=== PATIENT | female | born 1995 | race Caucasian/White ===

== ENCOUNTER → 2017-09-17 | Outpatient (CLI) | payer OTHER ==
--- NOTE | 2017-09-17 10:30 | DIREP ---
PROCEDURE:US BREAST-LT COMPARISON:None. INDICATIONS:N63 LUMP IN BREAST FINDINGS: BREAST ULTRASOUND: Left Breast:Sonographic examination of the entire breast including all 4 quadrants, retroareolar region and axilla was performed. Static images from the evaluation are submitted. There are limitations in the retroareolar region secondary to nipple artifact. There are no suspicious masses, microcalcifications or architectural distortions visible to suggest malignancy. The axilla is negative. CONCLUSION:No focal abnormality. The area of concern at 9 o'clock, 8 cm from nipple corresponds to normal appearing tissue. There is no radiographic evidence of malignancy. RECOMMENDATIONS:Follow-up with referring healthcare provider. A negative study does not exclude a significant abnormality. The reported area of clinical concern should be evaluated in its clinical context to determine if additional evaluation is warranted. Final management should be based on findings at clinical breast examination and clinical suspicion. Additional imaging evaluation may be warranted. Given the history of a palpable abnormality, surgical consult should be considered. OVERALL FINAL ASSESSMENT:BI-RADS 1 - Negative Comment: The need for additional evaluation (i.e., short-term imaging follow-up, surgical consult, breast MRI, etc.) beyond what was done today, should be based on clinical suspicion and clinical findings. Given the combination of a negative mammogram and negative ultrasound, the likelihood of malignancy has been shown to range from 0.1% to 4%.1-6 1. Anam SM, Rita LIG, Brandon DN, Lamine SC, Divya CM, Jared JE. Sonographic evaluation of clinically palpable breast cancers invisible on mammography. Breast J 2000; 6(4):247-251. 2. Low MA, Krishan SH, Brian AJ, Harlan AT, Chani TI, Sawyer SB. Breast biopsy avoidance: the value of normal mammograms and normal sonograms in the setting of a palpable lump. Radiology 2001; 219(1):186-191. 3. Breast biopsy avoidance. [Letters to the editor book and replies] Radiology 2002; 222(3):857-859. 4. Breast biopsy avoidance. [Letters to the editor book and replies] Radiology 2002; 222(2):581-582. 5. Ilia L, Ricki PJ, Balta R, et al. Specificity of mammography and US in the evaluation of a palpable abnormality: retrospective review. Radiology 2002; 225(1):176-181. 6. Desiree N, Rojelio L, Markus SALAZAR, Jett M, Josemanuel S, Noanup J. [place] breast imaging accuracy study: comparative sensitivity and specificity of mammography and sonography in young women with symptoms. AJR 2003; 180(4):935-940. Dictated by: Skip Negron M.D. on 09/17/2017 at 10:16 AM
== END | disposition home or self-care (01) ==
LOC: RAD 03:45
PROVIDERS: ATTEND Nurse Practitioner Family
DX: N63.10 Unspecified lump in the right breast, unspecified quadrant (principal)
CPT/HCPCS: 76641

== ENCOUNTER → 2017-10-02 | Outpatient (CLI) | payer OTHER ==
--- NOTE | 2017-10-02 11:44 | DIREP ---
PROCEDURE:MAMMO BILATERAL DIAGNOSTIC COMPARISON:[facility], US, US BREAST COMPLETE-LT, 09/17/2017, 09:55 AM. INDICATIONS:N63 LEFT BREAST NODULE BREAST COMPOSITION:The breasts are heterogeneously dense, which may obscure small masses. DIAGNOSTIC DIGITAL MAMMOGRAM: Right views [DIGITAL]: MLO and CC Left views [DIGITAL]: MLO, CC, mediolateral, and laterally exaggerated CC Computer Assisted Detection (CAD) was utilized. A skin marker was placed over the 4 o'clock posterior depth position of the left breast, to indicate the area where the patient intermittently feels a palpable nodule. A 2nd skin marker was placed over the 8 o'clock posterior depth position of the left breast, to indicate the area where her caregiver pelvic possible palpable nodule on physical examination. There is no mass, suspicious microcalcification, or architecture distortion in the areas of clinical concern or elsewhere in either breast. The areas marked by skin markers are very well visualized with no significant overlying obscuring fibroglandular tissue. IMPRESSION:No mammographic evidence of malignancy. Review of the previous ultrasound of the left breast, 09/17/2017, also showed that there were no suspicious ultrasound findings. (Please see that separate ultrasound report.) RECOMMENDATIONS: 1. Clinical follow-up by healthcare provider for breast signs and symptoms. If there remains strong clinical concern for possible underlying breast mass despite the present negative ultrasound and mammographic findings, such a suspected clinical mass should be managed clinically. 2. Findings and recommendations were discussed with the patient. OVERALL FINAL ASSESSMENT:BI-RADS 1 - Negative Mammogram Dictated by: Tavo Mark M.D. on 10/02/2017 at 11:30 AM
== END | disposition home or self-care (01) ==
LOC: RAD 10:54
PROVIDERS: ATTEND Nurse Practitioner Family
DX: N63.20 Unspecified lump in the left breast, unspecified quadrant (principal)
CPT/HCPCS: 77066

== ENCOUNTER 2018-04-05 00:15 | Emergency (ER) | payer OTHER ==
[~2018-04-05] VITALS: Ht 157.5 cm; Wt 108.9 kg
--- NOTE | 2018-04-05 00:26 | ER.PDOC ---
General Chief Complaint: Requesting Medical Care Stated Complaint: ABD PAIN Time seen by MD: 00:24 Source: patient Exam Limitations: no limitations History of Present Illness Initial Comments RUQ abdominal pain for 2 days Severity/Quality: moderate, sharpness Radiation: back Associated Symptoms: denies symptoms Exacerbated by: nothing Relieved By: nothing Allergies: Uncoded Allergies: PCN (Allergy, Unknown, 10/01/17) Past Medical History Medical History: no pertinent history Surgical History: no surgical history Family History Significant Family History: no pertinent family hx Social History Smoking: non-smoker Constitutional: no symptoms reported EENTM: no symptoms reported Respiratory: no symptoms reported Cardiovascular: no symptoms reported Gastrointestinal: see HPI All Other Systems: Reviewed and Negative Physical Exam General Appearance: No Apparent Distress, WD/WN, Obese HEENT: PERRL/EOMI Neck: Non-Tender, Full Range of Motion, Supple, Normal Inspection Respiratory: chest non-tender, lungs clear, normal breath sounds, no respiratory distress, no accessory muscle use Cardiovascular: Normal Peripheral Pulses, Regular Rate, Rhythm, No Edema, No Gallop, No JVD, No Murmur Gastrointestinal: Normal Bowel Sounds, No Organomegaly, No Pulsatile Mass, Guarding, Tenderness (RUQ) Back: Normal Inspection, No CVA Tenderness, No Vertebral Tenderness Extremities: Normal Range of Motion, Non-Tender, Normal Inspection, No Pedal Edema, No Calf Tenderness, Normal Capillary Refill, Pelvis Stable Neurologic/Psychiatric: food editor II-XII NML as Tested, No Motor/Sensory Deficits, Alert, Normal Mood/Affect, Oriented x 3 Skin: Normal Color, Warm/Dry Lymphatic: No Adenopathy EKG/XRAY/CT/US Utrasound Comments: Normal gallbladder Departure Time of Disposition: 02:36 Disposition: 01 HOME, SELF-CARE Impression: Primary Impression: Nonspecific abdominal pain Condition: Stable Referrals: [facility] APPLICATIONS PROJECT MANAGER (PCP) PRIMARY CARE PROVIDER Additional Instructions: F/U with your PCP this week Duration or Time Spent with Pa: 90 mins GEN ROLLINS MD Apr 05, 2018 00:26
--- NOTE | 2018-04-05 00:35 | NUR ---
URINE COLLECTED AND TAKEN TO LAB
[2018-04-05 00:43] LABS: BILIRUBIN,URINE NEGATIVE (NEGATIVE); UROBILINOGEN,URINE NORMAL (NEGATIVE)
[2018-04-05 00:44] LABS: APPEARANCE,URINE CLEAR (CLEAR); UA COLOR YELLOW (YELLOW)
[2018-04-05 00:47] LABS: HEMOGLOBIN 13.7 g/dL (12.0-15.0); MEAN CELL HGB 29.8 pg (26-34); MEAN CELL HGB CONCENTRATION 32.7 g/dL (33-37); MEAN CORP VOLUME 91.1 fL (78-100); RED CELL DISTRIBUTION WIDTH 12.5 % (11.5-14.5); WHITE BLOOD CELL 7.8 10^3/uL (4.5-11.0)
[2018-04-05 00:48] LABS: BASOPHIL % 0.5 % (0.0-0.2); EOSINOPHIL # 0.1 10^3/uL (0.0-0.2); EOSINOPHIL % 0.9 % (0.0-5.0); LYMPHOCYTES # 2.1 10^3/uL (1.0-4.8); LYMPHOCYTES % 26.4 % (24.0-44.0); MEAN PLATELET VOLUME 9.7 fL (7.8-11.0); MONOCYTES # 0.6 10^3/uL (0.3-0.8); MONOCYTES % 7.3 % (5.0-12.0); NEUTROPHILS % 64.6 % (41.0-85.0)
[2018-04-05 00:49] LABS: CARBON DIOXIDE 27.4 mmol/L (20.0-32)
[2018-04-05 00:50] LABS: CALCIUM 9.3 mg/dL (8.4-10.5)
[2018-04-05 01:35] VITALS: BP 130/65
--- NOTE | 2018-04-05 02:22 | DIREP ---
PROCEDURE:US ABDOMEN LIMITED(SINGLE ORGAN,QUAD) COMPARISON:None. INDICATIONS:RUQ abdominal pain FINDINGS: LIVER:Normal hepatic parenchymal architecture. BILIARY:Normal appearing gallbladder and biliary tree. The common bile duct measures 4.6 mm. PANCREAS:Normal. RIGHT KIDNEY:The right kidney measures 9.3 x 5.3 x 5.4 cm. Questionable echogenic foci in right renal collecting system. OTHER:Negative. No ascites is identified. CONCLUSION: 1. Normal gallbladder. 2. Questionable stones in the right kidney. Dictated by: Jonathan Cole M.D. on 04/05/2018 at 02:19 AM
[2018-04-05 02:45] VITALS: BP 130/65
== END 2018-04-05 02:43 | disposition home or self-care (01) ==
LOC: ER 00:15
DX: R10.11 Right upper quadrant pain (principal); Z88.0 Allergy status to penicillin
CPT/HCPCS: 36415; 76705; 80053; 81002; 81025; 83690; 85025; 85610; 85730; 86677; 99285

== ENCOUNTER → 2018-04-15 | Outpatient (CLI) | payer OTHER ==
--- NOTE | 2018-04-15 12:31 | DIREP ---
PROCEDURE:NM GALLBLADDER SCAN/CROWDER COMPARISON:None. INDICATIONS:R10.11 RUQ PAIN TECHNIQUE:After obtaining the patient's consent, radiopharmaceutical was injected and images obtained sequentially for one hour. PHARMACEUTICAL(S):7.4 mCi Tc-99m NICOLE derivative. 8 oz of Ensure Plus, PO FINDINGS: LIVER:Normal. BILIARY DUCTS:Normal. Visualized at 5 minutes. GALLBLADDER:Normal. Visualized at 10 minutes INTESTINE:Normal. Visualized at 40 minutes EJECTION FRACTION:26 %. Normal is greater than 35%. CONCLUSION:No evidence of acute cholecystitis. Low gallbladder ejection fraction of 26% that is compatible with chronic cholecystitis versus cystic duct syndrome. Dictated by: Mohan Duncan MD on 04/15/2018 at 12:28 PM
== END | disposition home or self-care (01) ==
LOC: RAD 08:45
PROVIDERS: ATTEND Nurse Practitioner Family
DX: R10.11 Right upper quadrant pain (principal)
CPT/HCPCS: 78227; A9537

== ENCOUNTER 2018-05-08 02:43 | Day surgery (SDC) | payer OTHER ==
[2018-05-05 10:43] VITALS: BP 128/81
[2018-05-05 11:09] LABS: BASOPHIL # 0.1 10^3/uL (0.0-0.1); BASOPHIL % 0.9 % (0.0-0.2); EOSINOPHIL # 0.1 10^3/uL (0.0-0.2); EOSINOPHIL % 1.8 % (0.0-5.0); HEMOGLOBIN 13.1 g/dL (12.0-15.0); LYMPHOCYTES # 2.6 10^3/uL (1.0-4.8); LYMPHOCYTES % 38.5 % (24.0-44.0); MEAN CELL HGB 29.8 pg (26-34); MEAN CELL HGB CONCENTRATION 33.2 g/dL (33-37); MEAN PLATELET VOLUME 10.2 fL (7.8-11.0); MONOCYTES # 0.6 10^3/uL (0.3-0.8); MONOCYTES % 9.3 % (5.0-12.0); NEUTROPHIL # 3.4 10^3/uL (1.8-7.7); NEUTROPHILS % 49.4 % (41.0-85.0); RED CELL DISTRIBUTION WIDTH 12.5 % (11.5-14.5); WHITE BLOOD CELL 6.8 10^3/uL (4.5-11.0)
[2018-05-05 11:32] LABS: CALCIUM 8.9 mg/dL (8.4-10.5); CARBON DIOXIDE 25.6 mmol/L (20.0-32)
[2018-05-08] VITALS (10 sets, daily range): BP systolic 112–156; BP diastolic 57–98
[~2018-05-08] VITALS: Ht 157.5 cm; Wt 120.7 kg
[~2018-05-08 02:43] MED LIST: RANI150T23 PO
[2018-05-08] MEDS ORDERED: LOVENOX SQ ONE ×2 (05:12→06:30)
[2018-05-08] MEDS ORDERED: LACTATED RINGERS 1,000 ML ONE ×3 (05:12→08:39)
[2018-05-08] MEDS ORDERED: NS 100ML 100 ML IV ONE (05:12)
[2018-05-08] MEDS ORDERED: LACTATED RINGERS 1,000 ML IV SCH ×2 (06:30→09:00)
[2018-05-08] MEDS ORDERED: DECADRON ONE ×2 (06:43→06:57)
[2018-05-08] MEDS ORDERED: NEOSTIGMINE ONE ×2 (06:44→06:57)
[2018-05-08] MEDS ORDERED: VERSED ONE ×2 (06:44→06:58)
[2018-05-08] MEDS ORDERED: SUBLIMAZE ONE ×2 (06:44→06:58)
[2018-05-08] MEDS ORDERED: DIPRIVAN IV ONE ×2 (06:44→06:58)
[2018-05-08] MEDS ORDERED: ZEMURON IV ONE ×2 (06:44→06:58)
[2018-05-08] MEDS ORDERED: TORADOL ONE ×2 (06:44→06:57)
[2018-05-08] MEDS ORDERED: ZOFRAN ONE ×3 (06:44→09:33)
[2018-05-08] MEDS ORDERED: DILAUDID ONE ×2 (06:45→06:59)
[2018-05-08] MEDS ORDERED: LIDOCAINE 2% VIAL ONE ×2 (06:45→06:57)
[2018-05-08] MEDS ORDERED: QUELICIN ONE (06:58)
[2018-05-08] MEDS ORDERED: SENSORCAINE-MPF 0.25% VIAL ONE (07:01)
[2018-05-08] MEDS ORDERED: WATER ONE (07:01)
[2018-05-08] MEDS ORDERED: SODIUM CHLORIDE IR ONE (07:01)
[2018-05-08] MEDS ORDERED: SODIUM CHLORIDE IRR BAG 1,000 ML ONE (07:01)
[2018-05-08] MEDS ORDERED: REGLAN IV PRN (09:00)
[2018-05-08] MEDS ORDERED: DEMEROL IV PRN (09:00)
[2018-05-08] MEDS ORDERED: SUBLIMAZE IV PRN (09:00)
[2018-05-08] MEDS ORDERED: PHENERGAN IV PRN ×2 (09:00)
[2018-05-08] MEDS ORDERED: ZOFRAN IV PRN (09:00)
[2018-05-08] MEDS ORDERED: NORCO 5MG PO PRN (09:00)
[2018-05-08] MEDS ORDERED: DILAUDID IV PRN (09:00)
--- NOTE | 2018-05-08 14:47 | OPH ---
DATE OF SURGERY: 05/08/2018 PREOPERATIVE DIAGNOSES: 1. Biliary sludge with symptoms. 2. Dyspepsia. POSTOPERATIVE DIAGNOSES: 1. Chronic cholecystitis. 2. Mild gastritis. SURGEON: Andres Taylor DO MUSEUM CURATOR: OR staff. ANESTHESIA: General by Nanette Song CRNA plus local used on the field. PROCEDURES PERFORMED: 1. Laparoscopic-assisted cholecystectomy. 2. EGD and biopsy. SPECIMENS: 1. Gallbladder. 2. Gastric mucosa to path. ESTIMATED BLOOD LOSS: 11 mL. COUNTS: At the completion of the case, the counts were correct per OR staff. DESCRIPTION OF PROCEDURE: The patient is a 23-year-old female known from previous evaluation. Prior to procedure, informed consent was obtained. At time of procedure, she was taken to the operative suite, placed in supine position. After time-out was completed, general anesthesia was obtained, her abdomen was prepped and draped in normal fashion. Local was used to anesthetize the infraumbilical region. Incision was created and 5 mm trocar was introduced into the abdomen with Endo camera visualization. Once in the abdomen, pneumoperitoneum was induced to the level of 14 mmHg. Next, under camera visualization, a 5 mm trocar was placed laterally in the right upper quadrant, a 5 mm trocar was placed in the epigastrium and one was placed in the midline towards the right upper quadrant. The gallbladder was retracted and exposed. Attention was directed to the infundibulum. Careful dissection was made to isolate what is the cystic duct and easily identified cystic artery. Once they were both clearly isolated, they were each clipped twice proximally and once distally and divided sharply. The gallbladder was then removed from liver bed using electrocautery. Once completely removed, it was placed in the EndoCatch bag and removed through the epigastric trocar and passed to the back table. Trocar was reinserted. The gallbladder fossa was irrigated with sterile saline, inspected for bleeding. Any bleeding identified was controlled with electrocautery. With meticulous hemostasis noted, irrigation and suctioned, closure was pursued. Under camera visualization, all 4 trocar sites were localized. The camera was placed in the superior trocar and 3 inferior trocars were removed with camera visualization. There was noted to be no bleeding. With adequate exposure, pneumoperitoneum was completely reduced. The 4 skin incisions were closed with 4-0 Monocryl. The patient was cleaned. Steri-Strips and bandage applied, drapes removed. The patient remained in the OR. Timeout was previously completed. She remained anesthetized and the esophagogastroduodenoscope was advanced transorally with pneumoinsufflation distally in second portion of duodenum. Once duodenum was adequately visualized, camera was slowly withdrawn to facilitate visualization of the duodenal bulb and the pylorus. Pylorus and distal stomach showed gastritis minimally and biopsies were obtained. The retroflexed maneuver was performed. The cardia and fundus were grossly normal. Camera was reduced, stomach was decompressed. Scope was slowly withdrawn. Distal, mid and proximal esophagus were essentially normal. Vocal cords were not visualized as there is an endotracheal tube in place. The camera was removed. Procedure was discontinued. The patient tolerated this procedure well. There were no acute complications noted. Andres Taylor DO DR: CHARLENE/ian JOB# [id number] CC: Stephanie Castellanos NP MTDNargis
== END 2018-05-08 10:35 | disposition home or self-care (01) | DRG 392 ==
LOC: SDC 02:43
PROVIDERS: ATTEND Surgery
DX: K29.50 Unspecified chronic gastritis without bleeding (principal); K81.1 Chronic cholecystitis; E66.3 Overweight; E66.01 Morbid (severe) obesity due to excess calories; Z82.49 Family history of ischemic heart disease and other diseases of the circulatory system; Z79.899 Other long term (current) drug therapy; Z88.0 Allergy status to penicillin; Z88.8 Allergy status to other drugs, medicaments and biological substances; Z68.42 Body mass index [BMI] 45.0-49.9, adult
CPT/HCPCS: 36415; 43239; 47562; 80053; 84703; 85025; 85610; 85730; 88304; 88305; 88342; J0330; J1100 ×2; J1650; J1885 ×2; J2001 ×2; J2250 ×2; J2405 ×3; J2710 ×2; J3010 ×2; J3490 ×5; J7030 ×2; J7050; J7120 ×3

== ENCOUNTER → 2019-05-06 | Outpatient (CLI) | payer OTHER ==
[~2019-05-06] MED LIST changes: +RANI-443 PO; -RANI150T23 PO
[2019-05-11 08:33] LABS: FOLLICLE STIMULATING HORMONE 6.5
== END | disposition home or self-care (01) ==
LOC: LAB 14:23
PROVIDERS: ATTEND Nurse Practitioner Family
DX: N95.1 Menopausal and female climacteric states (principal)
CPT/HCPCS: 36415; 82672; 83001; 83002; 84146; 84403

== ENCOUNTER → 2019-06-29 | Outpatient (CLI) | payer OTHER | END | disposition home or self-care (01) | LOC: LAB 13:29 | PROVIDERS: ATTEND Nurse Practitioner Family | DX: E03.9 Hypothyroidism, unspecified (principal) | CPT/HCPCS: 36415; 84439; 84443 ==

== ENCOUNTER 2020-08-16 21:21 | Emergency (ER) | payer OTHER ==
--- NOTE | 2020-08-16 22:11 | NUR ---
CONCERN SPOKE WITH PATIENT, STATES THAT IF THE WAIT IS GOING TO BE ANY LONGER SHE IS JUST GOING TO GO HOME. EXPLAINED BED STATUS AND THAT THERE ARE NO BEDS AVAILABLE TO PUT PATIENT IN FOR TRIAGE AT THIS TIME, STATES, "I'M JUST GOING TO LEAVE." DR. GALLAGHER NOTIFIED.
== END 2020-08-16 22:10 | disposition left against medical advice (07) ==
LOC: ER 21:21
DX: R09.81 Nasal congestion (principal); Z53.21 Procedure and treatment not carried out due to patient leaving prior to being seen by health care provider